=== PATIENT | male | born 1965 | race Caucasian/White ===

== ENCOUNTER 2018-09-03 09:57 | Emergency (ER) | payer MEDICARE, MEDICAID ==
[~2018-09-03 09:57] MED LIST: ACE325 PO; ACE500 PO; ACET-1966 PO; AMI25 PO; AMIT-108 PO; ANTIDEPRESSANT; ATEN-65 PO; AZIT500T47 PO; BIS5 PO; CEP500 PO; CIT20 PO; CITA10SO7 PO; CLI150 PO; CYC10 PO; CYCL-332 PO; CYCL10TA29 PO; DOC100 PO; DOCU50CA PO; HYD5L PO; HYDR-3087 PO; HYDR-3104 PO; HYDR-3250 PO; HYDR-385 PO; HYDR25CA13 PO; HYDR2TAB42 PO; HYDR2TAB74 PO; IBU800 PO; IBUP-56 PO; IBUP600T22 PO; KET10 PO; LIPA249C7 PO; LOR5 PO; LOR5/325 PO; MAGIC PO; METH4TAB66 PO; METR-1 PO; MIR PO; MIR15 PO; MIRT-18 PO; NAPR-1043 PO; OMEP-218 PO; OND4 PO; ONDA4TAB PO; ONDA4TAB97 PO; OXYC-1 PO; OXYC-373 PO; OXYC5SOL14 PO; OXYIR PO; PAN40 PO; PER PO; PHEN120S16 PO; PHEN1PAC PO; POLY17PO33 FT; PRE10 PO; PRED-1 PO; PRED20TA6 PO; PRO25 PO; PROC5L PO; PROM-110 PO; QUE100 PO; QUET150T3 PO; SERAQUIL; SUC1 PO; TAMS0.4C25 PO; TETR-30 PO; TRA50 PO; TRIC15T TOP; ZIPR40CA13 PO; [UNRECOGNIZED DRUG - CODE] PO; [UNRECOGNIZED DRUG - CODE] SQ
[2018-09-03] MEDS ORDERED: traMADol 50 MG TAB PO ONE (10:30)
--- NOTE | 2018-09-03 10:30 | ER Report ---
History and Physical Time Seen By MD: 10:29 Hx. of Stated Complaint: patient reports shoulder pain that has been going on for 1 month. Got much worse this morning and is having trouble with strength in that arm HPI/ROS Left shoulder pain for months. No known injury. Pt. on disability. No recent trauma/falls. No fever/chills. No midline neck pain. No numbness or weakness Remainder of the 14 system rev: Yes Allergies: Coded Allergies: Penicillins (Verified Allergy, Intermediate, RASH, 10/03/14) morphine (Verified Adverse Reaction, Intermediate, ITCHING, 10/03/14) Home Meds Active Scripts Tramadol Hcl (TRAMADOL HCL) 50 Mg Tablet, 50 MG PO Q6H PRN for PAIN, #12 TAB 0 Refills Prov:LESLI MERRITT MD 09/03/18 Hydroxyzine Pamoate (HYDROXYZINE PAMOATE) 25 Mg Capsule, 25 MG PO Q6H PRN for ITCHING, #30 CAPSULE Prov:TAMMY FERREIRA 10/03/14 Prednisone (PREDNISONE) 20 Mg Tablet, 20 MG PO DIRECTED, #19 TAB Take 1 tab by mouth twice a day for 7 days, then take 1 tab a day for 3 days and then take 1/2 tab a day for 4 days. Prov:TAMMY FERREIRA 10/03/14 Prednisone 10 Mg Tab (PREDNISONE 10 MG TAB) 10 Mg Tablet, 10 MG PO DIRECTED, #35 TAB 2 BID x5, 1 BID x5, 1 QDay X5 Prov:PENNY GREEN WHEEL POLISHER 09/10/14 Reviewed Nurses Notes: Yes Old Medical Records Reviewed: Yes Hx Smoking: Yes Smoking Status: Current: Every Day Smoker Exposure to Second Hand Smoke?: Yes Hx Substance Use Disorder: Yes (not for 6 years still in counseling) Hx Alcohol Use: Yes (not for 6 years) Constitutional Vital Sign - Last 24 Hours 09/03/18 10:02 Temp 98.2 Pulse 69 Resp 16 B/P (MAP) 145/104 Pulse Ox 95 O2 Delivery Room Air Physical Exam General Appearance: The patient is alert, has no immediate need for airway protection and no current signs of toxicity. Respiratory: Chest is non tender, lungs are clear to auscultation. Cardiac: regular rate and rhythm Gastrointestinal: Abdomen is soft and non tender, no masses, bowel sounds normal. Musculoskeletal: TTP of the left trapezius/rhomboid region. Neck: Neck is supple and non tender. Extremities have full range of motion. TTP at the lateral deltoid region. Skin: No rashes or lesions. Medical Decision Making ED Course/Re-evaluation ED Course No recent trauma. X-rays show no acute findings. Likely osteoarthritis vs. tendonitis from muscle strain. I counseled him to do stretching exercises. I also counseled him to see his primary care physician, and possibly be referred for occupational therapy. I gave him a sling and a short course of tramadol for the acute pain. Decision to Disposition Date: Sep 03, 2018 Decision to Disposition Time: 11:38 Depart Departure Latest Vital Signs Vital Signs Date Time Temp Pulse Resp B/P (MAP) Pulse Ox O2 Delivery O2 Flow Rate FiO2 09/03/18 10:02 98.2 69 16 145/104 95 Room Air Impression: Primary Impression: Shoulder pain Condition: Improved Disposition: HOME OR SELF-CARE Referrals: CHILANGO ANDERSON MANAGER MOTOR (PCP) New Scripts Tramadol Hcl (TRAMADOL HCL) 50 Mg Tablet 50 MG PO Q6H PRN for PAIN, #12 TAB 0 Refills Prov: LESLI MERRITT MD 09/03/18 Patient Instructions: Shoulder Pain (ED) Problem Qualifiers Primary Impression: Shoulder pain Chronicity: acute Laterality: left Qualified Codes: M25.512 - Pain in left shoulder LESLI MERRITT MD Sep 03, 2018 10:30
--- NOTE | 2018-09-03 10:48 | RADIOLOGY IMAGING REPORT ---
FACILITY: [facility] [place] PATIENT NAME: Ab Rodriguez : 1965 MR: [id number] V: [id number] EXAM DATE: ORDERING PHYSICIAN: LESLI MERRITT TECHNOLOGIST: Location: [facility] Patient: Ab Rodriguez : 1965 Visit/Account:[id number] Date of Sevice: 09/03/2018 SHOULDER MIN 2 VIEWS LEFT History: Left shoulder pain. Comparison study: July 27, 2007. Findings: There is diffuse osteopenia but no findings of a fracture. There is no dislocation but the re are mild findings of joint space narrowing of the glenohumeral joint. IMPRESSION: 1. Diffuse osteopenia but no findings of a fracture involving the left shoulder. No calcific tendinit is. Report Dictated By: Fritz Jack MD at 09/03/2018 10:42 AM Report E-Signed By: Fritz Jack MD at 09/03/2018 10:43 AM WSN:[id number]
[2018-09-03] MEDS ORDERED: TRAM-420 PO (11:20)
[2018-09-03 11:33] VITALS: BP 142/92
== END 2018-09-03 11:34 | disposition home or self-care (01) ==
LOC: ER 10:53
DX: M25.512 Pain in left shoulder (principal)
CPT/HCPCS: 73030; 99283; A4565; A9270